=== PATIENT | male | born 1995 | race African-American/Black ===

== ENCOUNTER 2018-01-23 20:26 | Emergency (ER) | payer OTHER ==
--- NOTE | 2018-01-23 20:41 | PDOC ---
Rapid Medical Evaluation Time Seen by Provider: 01/23/18 20:39 Medical Evaluation: 01/23/18 20:39 I have performed a brief in-person evaluation of this patient. The patient presents with a chief complaint of: accidentally cut by a knife at work. Laceration to left thumb at 8pm. Unknown tetanus status Pertinent physical exam findings: NAD unlabored breathing laceration to left thumb, bleeding I have ordered the following: boostrix ordered The patient will proceed to the ED for further evaluation.
[2018-01-23 20:46] VITALS: BP 148/85; PULSE 53; TEMP 98.2; BMI 23.5
[2018-01-23] MEDS ORDERED: DIPHTH,PERTUSS(ACELL),TET 0.5 ML DISP.SYRIN IM ONE (20:46)
--- NOTE | 2018-01-23 22:07 | PDOC ---
History of Present Illness - General Chief Complaint: Laceration Stated Complaint: LACERATION Time Seen by Provider: 01/23/18 20:39 - History of Present Illness Initial Comments: Healthy male whose tetanus was recently updated while waiting for evaluation of his left thumb laceration presents for evaluation of his left thumb laceration. The laceration occurred while at work while cutting a banana. He denies any other associated symptoms pain is described as slightly achy. No medical problems had a colonoscopy in the past which was negative NO ALLERGIES to medications 01/23/18 22:02 Past History - Past Medical History Allergies/Adverse Reactions: Allergies Allergy/AdvReac Type Severity Reaction Status Date / Time No Known Allergies Allergy Verified 01/23/18 20:43 Home Medications: Ambulatory Orders NK [No Known Home Medication] 01/23/18 COPD: No Other medical history: Pt denies - Suicide/Smoking/Psychosocial Hx Smoking History: Never smoked Have you smoked in the past 12 months: No Information on smoking cessation initiated: No Hx Alcohol Use: No Drug/Substance Use Hx: No Substance Use Type: None Review of Systems - Review of Systems All Other Systems: Reviewed and Negative *Physical Exam - Vital Signs Last Vital Signs Temp Pulse Resp BP Pulse Ox 98.2 F 53 L 20 148/85 98 01/23/18 20:44 01/23/18 20:44 01/23/18 20:44 01/23/18 20:44 01/23/18 20:44 - Physical Exam Comments: There is a subcentimeter superficial laceration at the ulnar border of his left thumb there is a small laceration over the nail which does not involve the nailbed. He has no gross sensorimotor deficits is neurovascularly intact. 01/23/18 22:04 ED Treatment Course - Medications Given in the ED: ED Medications Discontinued Medications Generic Name Dose Route Start Last Admin Trade Name Freq PRN Reason Stop Dose Admin Diphtheria/Tetanus/Acell Pertussis 0.5 ml 01/23/18 20:46 01/23/18 21:30 Boostrix - IM 01/23/18 20:47 0.5 ml .ONCE ONE Administration Medical Decision Making - Medical Decision Making The wound was thoroughly washed and irrigated and inspected. Tincture of benzoin was applied and the wound was approximated with a single Steri-Strip. 01/23/18 22:04 *DC/Admit/Observation/Transfer Diagnosis at time of Disposition: Laceration - Discharge Dispostion Disposition: HOME Condition at time of disposition: Stable Decision to Admit order: No - Referrals Referrals: Eden Soler [Primary Care Provider] - Ervin Diego MD [Staff Physician] - - Patient Instructions Additional Instructions: It is important 3 to follow-up with hand surgery in the next 2-3 days for a wound check. The Steri-Strip that was applied will fall off by itself in about a week or so. In the meantime keep your hand clean and dry for the next 48 hours after that you can wash with soap and water and leave the area open to air. If you need to work he must wear a glove. Return to the emergency room if symptoms worsen or go unresolved prior to follow-up with hand surgery. - Post Discharge Activity
== END 2018-01-23 22:12 | disposition home or self-care (01) ==
LOC: JERFT 20:26
PROC: 3E0234Z Introduction of Serum, Toxoid and Vaccine into Muscle, Percutaneous Approach (ICD-10-PCS; principal; 2018-01-23)
DX: S61.012A Laceration without foreign body of left thumb without damage to nail, initial encounter (principal); W26.0XXA Contact with knife, initial encounter; Y93.G3 Activity, cooking and baking; Y92.9 Unspecified place or not applicable; Y99.0 Civilian activity done for income or pay
CPT/HCPCS: 90715; 99281-25